=== PATIENT | female | born 1990 | race Caucasian/White ===

== ENCOUNTER 2019-05-09 16:32 | Emergency (ER) | payer MEDICAID, OTHER ==
[~2019-05-09] VITALS: Ht 160 cm; Wt 87.0 kg
[~2019-05-09 16:32] MED LIST: INDOMETHACIN; MORPHINE; PREDNISONE
[2019-05-09] MEDS ORDERED: IBUPROFEN 600MG TABLET PO STA (17:53)
[2019-05-09] MEDS ORDERED: HYDROCODONE/ACETAMINOPHEN 5/325MG TABLET PO SCH (19:29)
[2019-05-09 20:57] VITALS: BP 175/106
== END 2019-05-09 20:59 | disposition home or self-care (01) ==
LOC: ER 16:32
DX: M25.512 Pain in left shoulder (principal); R07.81 Pleurodynia; R51 Headache; V43.52XA Car driver injured in collision with other type car in traffic accident, initial encounter; Y93.9 Activity, unspecified; Y92.410 Unspecified street and highway as the place of occurrence of the external cause
CPT/HCPCS: 71100; 73030; 81025; 99283